=== PATIENT | male | born 1980 | race Caucasian/White ===

== ENCOUNTER 2021-11-26 14:48 | Outpatient (REF) | payer MEDICAID, SELFPAY ==
[2021-11-26 15:32] LABS: MANUAL DIFF FLAG NO
[2021-11-26 15:48] LABS: Basophils Percent Auto 0.2 % (0-2); Eosinophils Absolute Auto 0.1 X10*3/uL (0.0-0.4); Hematocrit 44.7 % (42.0-52.0); Hemoglobin 15.3 g/dl (14.0-18.0); Imm Gran Abs Auto 0.03 X10*3/uL (0.00-0.03); Imm Gran Pct Auto 0.3 % (0.0-0.4); Lymphocytes Percent Auto 33.4 % (20-40); Mean Corpuscular HGB Conc 34.2 g/dl (31.0-36.0); Mean Corpuscular Hemoglobin 29.5 pg (27.0-33.0); Mean Corpuscular Volume 86.1 fL (80.0-98.0); Mean Platelet Volume 8.8 fL (9.4-12.4); Monocytes Absolute Auto 0.8 X10*3/uL (0.1-1.2); Monocytes Percent Auto 8.6 % (2-11); Neutrophils Percent Auto 56.5 % (45-73); Platelet Count 320 X10*3/uL (160-400); Red Blood Count 5.19 X10*6/uL (4.60-5.80); Red Cell Distribution Width 12.6 % (11.0-16.0); White Blood Count 8.9 X10*3/uL (4.8-10.8)
== END 2021-11-26 14:49 | disposition home or self-care (01) ==
LOC: HO.LAB 14:48
PROVIDERS: PCP Internal Medicine; Visit Provider Internal Medicine Pulmonary Disease
DX: Z91.09 Other allergy status, other than to drugs and biological substances (principal)
CPT/HCPCS: 36415; 82785; 85025; 86003; 99202

== ENCOUNTER 2022-01-07 14:05 | Outpatient (REF) | payer MEDICAID, SELFPAY | END 2022-01-07 14:06 | disposition home or self-care (01) | LOC: HO.RESP 14:05 | PROVIDERS: PCP Internal Medicine; Visit Provider Internal Medicine Pulmonary Disease | DX: Z13.89 Encounter for screening for other disorder (principal) ==

== ENCOUNTER 2022-02-05 10:02 | Outpatient (REF) | payer MEDICAID, SELFPAY ==
--- NOTE | 2022-02-05 14:34 | PFT_ITS ---
FLOWS: FEV1 104% of predicted at 3.80 L. FVC 101% of predicted at 4.62 L. FEV1 to FVC ratio of 0.82. Positive bronchodilator response. LUNG VOLUMES: Total lung capacity 89% of predicted at 5.49 L. Residual volume 110% of predicted at 1.82 L. Slow vital capacity 82% of predicted at 3.67 L. Expiratory reserve volume 41% of predicted at 0.56 L. Diffusion capacity is normal. IMPRESSION: No obstructive or restrictive ventilatory defect. Positive bronchodilator response. Decreased expiratory reserve volume suggests extrathoracic restriction likely secondary to abdominal obesity. Cristobal Ku MD AP/MODL / [id number]
== END 2022-02-05 10:03 | disposition home or self-care (01) ==
LOC: HO.RESP 10:02
PROVIDERS: PCP Internal Medicine; Visit Provider Internal Medicine Pulmonary Disease
DX: J45.909 Unspecified asthma, uncomplicated (principal)
CPT/HCPCS: 94060; 94727; 94729

== ENCOUNTER → 2022-02-10 09:54 | Outpatient (BNVA) | payer MEDICAID, SELFPAY | PROVIDERS: PCP Internal Medicine; Visit Provider Internal Medicine Pulmonary Disease | DX: J45.909 Unspecified asthma, uncomplicated (principal); G47.33 Obstructive sleep apnea (adult) (pediatric); Z91.09 Other allergy status, other than to drugs and biological substances | CPT/HCPCS: 99212 ==

== ENCOUNTER → 2022-02-26 13:57 | Outpatient (REF) | payer MEDICAID, SELFPAY | LOC: HO.SL 13:57 | PROVIDERS: PCP Internal Medicine; Visit Provider Internal Medicine Pulmonary Disease | DX: G47.33 Obstructive sleep apnea (adult) (pediatric) (principal); R06.83 Snoring; R40.0 Somnolence | CPT/HCPCS: 95806 ==

== ENCOUNTER → 2022-04-16 10:24 | Outpatient (BNVA) | payer MEDICAID, SELFPAY | PROVIDERS: PCP Internal Medicine; Visit Provider Internal Medicine Pulmonary Disease | DX: J45.909 Unspecified asthma, uncomplicated (principal); G47.33 Obstructive sleep apnea (adult) (pediatric); Z91.09 Other allergy status, other than to drugs and biological substances | CPT/HCPCS: 99212 ==

== ENCOUNTER → 2022-06-09 09:23 | Outpatient (REF) | payer MEDICAID, SELFPAY ==
--- NOTE | 2022-06-09 09:33 | ECG_ITS ---
Test Reason : QTC CHECK Blood Pressure : / mmHG Vent. Rate : 061 BPM Atrial Rate : 061 BPM P-R Int : 152 ms QRS Dur : 080 ms QT Int : 422 ms P-R-T Axes : 035 055 059 degrees QTc Int : 424 ms Normal sinus rhythm Normal ECG No previous ECGs available Referred By: Dilip Carrion Electronically Signed By:GRACIELA MARINELLI MD
== END ==
LOC: HO.CARD 09:23
PROVIDERS: PCP Internal Medicine; Visit Provider Psychiatry & Neurology Child & Adolescent Psychiatry
DX: R94.31 Abnormal electrocardiogram [ECG] [EKG] (principal)
CPT/HCPCS: 93005

== ENCOUNTER → 2022-08-07 14:59 | Outpatient (BNVA) | payer MEDICAID, SELFPAY | PROVIDERS: PCP Internal Medicine; Visit Provider Internal Medicine Pulmonary Disease | DX: J45.909 Unspecified asthma, uncomplicated (principal); G47.33 Obstructive sleep apnea (adult) (pediatric); Z91.09 Other allergy status, other than to drugs and biological substances; Z79.899 Other long term (current) drug therapy | CPT/HCPCS: 99212 ==

== ENCOUNTER 2023-01-22 08:58 | Outpatient (AMB) | payer MEDICAID, SELFPAY ==
[2023-01-22 09:11] VITALS: BP 118/66; PULSE 62; O2SAT 98; BMI 27.3
--- NOTE | 2023-01-22 09:11 | MHC.OFFVIS ---
Intake Vital Signs 01/22/23 09:11 Height 5 ft 6 in Weight 169 lb BMI 27.3 BP 118/66 Blood Pressure Location Lt brachial Position Sitting Pulse 62 Pulse Source Pulse Oximeter Pulse Oximetry (%) 98 Oxygen Delivery Method Room Air Intake Visit Reasons: Obstructive sleep apnea Intake Note: Patient was last seen 08/07/22 where he reported the Dupixent injections were working well and was waiting on his CPAP machine. Pt reports injections are going well and are helping a lot. He has not being using CPAP because of the face mask and wants to try AirTouch F20. Pt denies coughing and wheezing. Allergies No Known Allergies Allergy (Verified 01/22/23 09:17) HPI Obstructive sleep apnea HPI Details 42-year-old gentleman, nonsmoker, now followed for moderate to severe allergic asthma, environmental allergies, and likely obstructive sleep apnea.? He continues on Dupixent with excellent control his symptoms. He does not required to use control inhaler and he did not require any emergency inhalers recently. Patient has been using CPAP with nasal mask, however he would like to switched to fullface mask. Review of Systems Const Denies daytime sleepiness, Denies excessive sweating, Denies fatigue, Denies fever(s), Denies lethargy, Denies malaise, Denies night sweats, Denies snoring and Denies weight loss Eyes Denies blurry vision and Denies itchy eyes ENT Denies nasal congestion, Denies post nasal drip, Denies sinus pain, Denies sinus pressure and Denies other ( Thrush) Card Denies chest pain, Denies pedal edema, Denies dyspnea, Denies orthopnea and Denies paroxysmal nocturnal dyspnea Resp Denies cough, Denies hemoptysis, Denies excessive phlegm production, Denies dyspnea, Denies snoring and Denies wheezing GI Denies abdominal pain and Denies heartburn Musc Denies myalgias, Denies arthralgias and Denies joint swelling Skin/Breast Denies rash Neuro Denies memory loss and Denies seizure-like activity Psych Denies abnormal sleep pattern, Denies anxiety and Denies memory loss Endo Denies excessive sweating, Denies fatigue and Denies heat intolerance Loyd/Lymph Denies easy bruising Aller/Immun Denies itchy eyes, Denies seasonal rhinorrhea and Denies wheezing Physical Exam Vital Signs: Last Vital Signs Pulse 62 01/22/23 09:11 BP 118/66 01/22/23 09:11 Pulse Ox 98 01/22/23 09:11 Oxygen Delivery Method Room Air 01/22/23 09:11 BMI result Body Mass Index 27.3 Const General: no acute distress and alert Nutritional Appearance: not obese Orientation/consciousness: Other orientation findings ( oriented) HEENT Head: Yes atraumatic Eyes General: appearance normal, both eyes and all related structures Sclerae: sclerae normal EOM: EOMs intact bilaterally Neck Neck: Yes supple Lymphatic: no lymphadenopathy noted Resp Effort & Inspection: normal respiratory effort and no use of accessory muscles Auscultation: clear to auscultation bilaterally Cardio Rate: regular rate Rhythm: regular rhythm Heart sounds: no gallops, no murmurs and no rubs Skin General skin exam: other ( warm) Extrem General: No clubbing, No cyanosis and No edema Assessment & Plan Assessment & Plan (1) Asthma: Code(s): J45.909 - Unspecified asthma, uncomplicated Plan: Excellent control on Dupixent. Continue on Dupixent and albuterol MDI. (2) Environmental allergies: Code(s): Z91.09 - Other allergy status, other than to drugs and biological substances Plan: Excellent control on Dupixent. Continue current regimen. (3) STEVIE (obstructive sleep apnea): Code(s): G47.33 - Obstructive sleep apnea (adult) (pediatric) Plan: Suboptimal control as patient does not tolerate nasal mask and would like to try fullface mask instead. Fullface mask provided. Coding Level of Care Code Est Pt Level 4 (57433) Diagnoses Asthma J45.909 Environmental allergies Z91.09 STEVIE (obstructive sleep apnea) G47.33
== END 2023-01-22 09:38 | disposition home or self-care (01) ==
PROVIDERS: PCP Internal Medicine; Visit Provider Internal Medicine Pulmonary Disease
DX: J45.909 Unspecified asthma, uncomplicated (principal); Z91.09 Other allergy status, other than to drugs and biological substances; G47.33 Obstructive sleep apnea (adult) (pediatric)
CPT/HCPCS: 99214

== ENCOUNTER → 2023-01-22 08:58 | Outpatient (BNVA) | payer MEDICAID, SELFPAY | PROVIDERS: PCP Internal Medicine; Visit Provider Internal Medicine Pulmonary Disease | DX: G47.33 Obstructive sleep apnea (adult) (pediatric) (principal); J45.909 Unspecified asthma, uncomplicated; Z91.09 Other allergy status, other than to drugs and biological substances | CPT/HCPCS: 99212 ==

== ENCOUNTER 2023-07-22 09:37 | Outpatient (AMB) | payer MEDICAID, SELFPAY ==
--- NOTE | 2023-07-22 09:40 | A.OFFVIS_ITS ---
Intake Vital Signs 07/22/23 09:41 Height 5 ft 11 in Weight 169 lb 12.095 oz BMI 23.7 BP 102/67 Blood Pressure Location Rt brachial Position Sitting Pulse 76 Pulse Source Doppler Pulse Oximetry (%) 99 Oxygen Delivery Method Room Air Intake Visit Reasons: Obstructive sleep apnea Ab Initio Etl Developer Required: Yes Ab Initio Etl Developer Name: Jael Tee Cecilia Allergies seafood Allergy (Severe, Uncoded 07/22/23 09:46) Unknown HPI Obstructive sleep apnea HPI Details 43-year-old gentleman, nonsmoker, now fo llowed for moderate to severe allergic asthma, environmental allergies, and obstructive sleep apnea.? He continues on Dupixent with excellent control his symptoms. He does not required to use control inhaler and he did not require any emergency inhalers recently. Patient has tried to use CPAP, however he was not able to adjust to sleeping with a mask and cannot tolerate it. Review of Systems Const Denies daytime sleepiness, Denies excessive sweating, Denies fatigue, Denies fever(s), Denies lethargy, Denies malaise, Denies night sweats, Denies snoring and Denies weight loss Eyes Denies blurry vision and Denies itchy eyes ENT Denies nasal congestion, Denies post nasal drip, Denies sinus pain, Denies sinus pressure and Denies other ( Thrush) Card Denies chest pain, Denies pedal edema, Denies dyspnea, Denies orthopnea and Denies paroxysmal nocturnal dyspnea Resp Denies cough, Denies hemoptysis, Denies excessive phlegm production, Denies dyspnea, Denies snoring and Denies wheezing GI Denies abdominal pain and Denies heartburn Musc Denies myalgias, Denies arthralgias and Denies joint swelling Skin/Breast Denies rash Neuro Denies memory loss and Denies seizure-like activity Psych Denies abnormal sleep pattern, Denies anxiety and Denies memory loss Endo Denies excessive sweating, Denies fatigue and Denies heat intolerance Loyd/Lymph Denies easy bruising Aller/Immun Denies itchy eyes, Denies seasonal rhinorrhea and Denies wheezing Physical Exam Vital Signs: Last Vital Signs Pulse 76 07/22/23 09:41 BP 102/67 07/22/23 09:41 Pulse Ox 99 07/22/23 09:41 Oxygen Delivery Method Room Air 07/22/23 09:41 BMI result Body Mass Index 23.7 Const General: no acute distress and alert Nutritional Appearance: not obese Orientation/consciousness: Other orientation findings ( oriented) HEENT Head: Yes atraumatic Eyes General: appearance normal, both eyes and all related structures Sclerae: sclerae normal EOM: EOMs intact bilaterally Neck Neck: Yes supple Lymphatic: no lymphadenopathy noted Resp Effort & Inspection: normal respiratory effort and no use of accessory muscles Auscultation: clear to auscultation bilaterally Cardio Rate: regular rate Rhythm: regular rhythm Heart sounds: no gallops, no murmurs and no rubs Skin General skin exam: other ( warm) Extrem General: No clubbing, No cyanosis and No edema Assessment & Plan Assessment & Plan (1) Asthma: Code(s): J45.909 - Unspecified asthma, uncomplicated Plan: Well controlled on Dupixent and albuterol MDI. Continue current regimen. (2) STEVIE (obstructive sleep apnea): Code(s): G47.33 - Obstructive sleep apnea (adult) (pediatric) Plan: Unable to tolerate CPAP. Patient has been advised to discuss jaw advancement device with his dentist. (3) Environmental allergies: Code(s): Z91.09 - Other allergy status, other than to drugs and biological substances Plan: Well controlled on Dupixent. Continue current regimen. Coding Level of Care Code Est Pt Level 4 (22343) Diagnoses Asthma J45.909 STEVIE (obstructive sleep apnea) G47.33 Environmental allergies Z91.09
[2023-07-22 09:41] VITALS: BP 102/67; PULSE 76; O2SAT 99; BMI 23.7
== END 2023-07-22 09:56 | disposition home or self-care (01) ==
PROVIDERS: PCP Internal Medicine; Visit Provider Internal Medicine Pulmonary Disease
DX: J45.909 Unspecified asthma, uncomplicated (principal); G47.33 Obstructive sleep apnea (adult) (pediatric); Z91.09 Other allergy status, other than to drugs and biological substances
CPT/HCPCS: 99214

== ENCOUNTER → 2023-07-22 09:37 | Outpatient (BNVA) | payer MEDICAID, SELFPAY | PROVIDERS: PCP Internal Medicine; Visit Provider Internal Medicine Pulmonary Disease | DX: G47.33 Obstructive sleep apnea (adult) (pediatric) (principal); J45.909 Unspecified asthma, uncomplicated; Z91.09 Other allergy status, other than to drugs and biological substances | CPT/HCPCS: 99212 ==

== ENCOUNTER 2024-01-06 15:04 | Outpatient (AMB) | payer MEDICAID, SELFPAY ==
--- NOTE | 2024-01-06 15:05 | MHC.OFFVIS ---
Vital Signs 01/06/24 15:06 Height 5 ft 10 in Weight 156 lb BMI 22.4 BP 106/62 Blood Pressure Location Rt brachial Position Sitting Pulse 75 Pulse Source Doppler Pulse Oximetry (%) 98 Oxygen Delivery Method Room Air Intake Visit Reasons: Obstructive sleep apnea Manager Bilingual Required: Yes Manager Bilingual Name: Jael Jaime Cecilia Allergies seafood Allergy (Severe, Uncoded 07/22/23 09:46) Unknown HPI HPI Obstructive sleep apnea: Details: 43-year-old gentleman, nonsmoker, now followed for moderate to severe allergic asthma, environmental allergies, and obstructive sleep apnea.? He continues on Dupixent with excellent control his symptoms. He does not required to use control inhaler and he did not require any emergency inhalers recently. Patient has tried to use CPAP, however he was not able to adjust to sleeping with a mask and cannot tolerate it. He denies recent exacerbations. Review of Systems Const Denies daytime sleepiness, Denies excessive sweating, Denies fatigue, Denies fever(s), Denies lethargy, Denies malaise, Denies night sweats, Denies snoring and Denies weight loss Eyes Denies blurry vision and Denies itchy eyes ENT Denies nasal congestion, Denies post nasal drip, Denies sinus pain, Denies sinus pressure and Denies other ( Thrush) Card Denies chest pain, Denies pedal edema, Denies dyspnea, Denies orthopnea and Denies paroxysmal nocturnal dyspnea Resp Denies cough, Denies hemoptysis, Denies excessive phlegm production, Denies dyspnea, Denies snoring and Denies wheezing GI Denies abdominal pain and Denies heartburn Musc Denies myalgias, Denies arthralgias and Denies joint swelling Skin/Breast Denies rash Neuro Denies memory loss and Denies seizure-like activity Psych Denies abnormal sleep pattern, Denies anxiety and Denies memory loss Endo Denies excessive sweating, Denies fatigue and Denies heat intolerance Loyd/Lymph Denies easy bruising Aller/Immun Denies itchy eyes, Denies seasonal rhinorrhea and Denies wheezing Physical Exam Vital Signs: Last Vital Signs Pulse 75 01/06/24 15:06 BP 106/62 01/06/24 15:06 Pulse Ox 98 01/06/24 15:06 Oxygen Delivery Method Room Air 01/06/24 15:06 BMI result Body Mass Index 22.4 Const General: no acute distress and alert Nutritional Appearance: not obese Orientation/consciousness: Other orientation findings ( oriented) HEENT Head: Yes atraumatic Eyes General: appearance normal, both eyes and all related structures Sclerae: sclerae normal EOM: EOMs intact bilaterally Neck Neck: Yes supple Lymphatic: no lymphadenopathy noted Resp Effort & Inspection: normal respiratory effort and no use of accessory muscles Auscultation: clear to auscultation bilaterally Cardio Rate: regular rate Rhythm: regular rhythm Heart sounds: no gallops, no murmurs and no rubs Skin General skin exam: other ( warm) Extrem General: No clubbing, No cyanosis and No edema Assessment & Plan Assessment & Plan (1) Asthma: Code(s): J45.909 - Unspecified asthma, uncomplicated Category: Medical Plan: Well controlled on current regimen of Dupixent and albuterol MDI. Continue current regimen. (2) Environmental allergies: Code(s): Z91.09 - Other allergy status, other than to drugs and biological substances Category: Medical Plan: Well controlled on Dupixent. Continue current regimen. Coding Level of Care Code Est Pt Level 4 (17716) Diagnoses Asthma J45.909 Environmental allergies Z91.09
[2024-01-06 15:06] VITALS: BP 106/62; PULSE 75; O2SAT 98; BMI 22.4
== END 2024-01-06 15:18 | disposition home or self-care (01) ==
PROVIDERS: PCP Internal Medicine; Visit Provider Internal Medicine Pulmonary Disease
DX: J45.909 Unspecified asthma, uncomplicated (principal); Z91.09 Other allergy status, other than to drugs and biological substances
CPT/HCPCS: 99214

== ENCOUNTER → 2024-01-06 15:04 | Outpatient (BNVA) | payer MEDICAID, SELFPAY | PROVIDERS: PCP Internal Medicine; Visit Provider Internal Medicine Pulmonary Disease | DX: J45.909 Unspecified asthma, uncomplicated (principal); Z91.09 Other allergy status, other than to drugs and biological substances | CPT/HCPCS: 99212 ==

== ENCOUNTER 2024-05-03 12:46 | Outpatient (REF) | payer MEDICAID, SELFPAY ==
--- NOTE | ~2024-05-03 | XR_ITS ---
EXAMINATION: XR LUMBOSACRAL SPINE CLINICAL INFORMATION: Fell 2 weeks ago with bilateral back pain and no sciatica COMPARISON: None available. TECHNIQUE: Three views of the lumbosacral spine. FINDINGS: Some minor degenerative changes are seen with some superior central endplate osteophytes at L3 and L4. There is mild narrowing at the L4-L5 disc space and to a lesser extent at L3-L4. The vertebral bodies and posterior elements are otherwise normal. The remainder of the disc spaces are preserved and the vertebral alignment is normal. The paraspinal soft tissues are normal. XR/XR lumbar spine 2-3V IMPRESSION: Mild degenerative changes in the lumbar spine as described above. No evidence of an acute traumatic injury. Electronically signed by: Abilio Voss MD 05/04/2024 09:03 AM EDT
== END 2024-05-03 12:47 | disposition home or self-care (01) ==
LOC: HO.HHCX 12:46
PROVIDERS: Visit Provider Internal Medicine
DX: M54.50 Low back pain, unspecified (principal)
CPT/HCPCS: 72100

== ENCOUNTER 2024-06-30 10:12 | Outpatient (AMB) | payer MEDICARE, MEDICAID, SELFPAY ==
[2024-06-30 10:20] VITALS: BP 122/70; PULSE 78; O2SAT 99
--- NOTE | 2024-06-30 10:20 | MHC.OFFVIS ---
Vital Signs 06/30/24 10:20 Weight 165 lb BP 122/70 Blood Pressure Location Rt brachial Position Sitting Pulse 78 Pulse Source Doppler Pulse Oximetry (%) 99 Oxygen Delivery Method Room Air Intake Visit Reasons: Obstructive sleep apnea Stamp Classifier Required: Yes Stamp Classifier Name: Jael Tee Cecilia Allergies seafood Allergy (Severe, Uncoded 07/22/23 09:46) Unknown HPI HPI Obstructive sleep apnea: Details: 44-year-old gentleman, nonsmoker, now followed for moderate to severe allergic asthma, environmental allergies, and obstructive sleep apnea.? He continues on Dupixent with excellent control his symptoms. He rarely needs to use albuterol MDI or nebs. He denies recent exacerbations. Review of Systems Const Denies daytime sleepiness, Denies excessive sweating, Denies fatigue, Denies fever(s), Denies lethargy, Denies malaise, Denies night sweats, Denies snoring and Denies weight loss Eyes Denies blurry vision and Denies itchy eyes ENT Denies nasal congestion, Denies post nasal drip, Denies sinus pain, Denies sinus pressure and Denies other ( Thrush) Card Denies chest pain, Denies pedal edema, Denies dyspnea, Denies orthopnea and Denies paroxysmal nocturnal dyspnea Resp Denies cough, Denies hemoptysis, Denies excessive phlegm production, Denies dyspnea, Denies snoring and Denies wheezing GI Denies abdominal pain and Denies heartburn Musc Denies myalgias, Denies arthralgias and Denies joint swelling Skin/Breast Denies rash Neuro Denies memory loss and Denies seizure-like activity Psych Denies abnormal sleep pattern, Denies anxiety and Denies memory loss Endo Denies excessive sweating, Denies fatigue and Denies heat intolerance Loyd/Lymph Denies easy bruising Aller/Immun Denies itchy eyes, Denies seasonal rhinorrhea and Denies wheezing Physical Exam Vital Signs: Last Vital Signs Pulse 78 06/30/24 10:20 BP 122/70 06/30/24 10:20 Pulse Ox 99 06/30/24 10:20 Oxygen Delivery Method Room Air 06/30/24 10:20 Const General: no acute distress and alert Nutritional Appearance: not obese Orientation/consciousness: Other orientation findings ( oriented) HEENT Head: Yes atraumatic Eyes General: appearance normal, both eyes and all related structures Sclerae: sclerae normal EOM: EOMs intact bilaterally Neck Neck: Yes supple Lymphatic: no lymphadenopathy noted Resp Effort & Inspection: normal respiratory effort and no use of accessory muscles Auscultation: clear to auscultation bilaterally Cardio Rate: regular rate Rhythm: regular rhythm Heart sounds: no gallops, no murmurs and no rubs Skin General skin exam: other ( warm) Extrem General: No clubbing, No cyanosis and No edema Assessment & Plan Assessment & Plan (1) Asthma: Code(s): J45.909 - Unspecified asthma, uncomplicated Category: Medical Plan: Well controlled on Dupixent and albuterol MDI. Continue current regimen. (2) Environmental allergies: Code(s): Z91.09 - Other allergy status, other than to drugs and biological substances Category: Medical Plan: Well controlled on Dupixent. Continue current regimen. Coding Level of Care Code Est Pt Level 4 (91068) Diagnoses Asthma J45.909 Environmental allergies Z91.09
== END 2024-06-30 10:31 | disposition home or self-care (01) ==
PROVIDERS: PCP Internal Medicine; Visit Provider Internal Medicine Pulmonary Disease
DX: J45.909 Unspecified asthma, uncomplicated (principal); Z91.09 Other allergy status, other than to drugs and biological substances
CPT/HCPCS: 99214

== ENCOUNTER → 2024-06-30 10:12 | Outpatient (BNVA) | payer MEDICARE, MEDICAID, SELFPAY | PROVIDERS: PCP Internal Medicine; Visit Provider Internal Medicine Pulmonary Disease | DX: G47.33 Obstructive sleep apnea (adult) (pediatric) (principal); J45.909 Unspecified asthma, uncomplicated; Z91.09 Other allergy status, other than to drugs and biological substances | CPT/HCPCS: 99212 ==

== ENCOUNTER 2025-01-21 23:42 | Emergency (ER) | payer MEDICARE, MEDICAID, SELFPAY ==
[2025-01-22] VITALS: BP 130/91; PULSE 60; RESP 16; TEMP 36.8; O2SAT 99; BMI 23.1
--- OUTSIDE RECORDS SUMMARY | 2025-01-22 01:01 | XMS_ITS | Encounter Summary ---
Author Organization [employer] Address [address] [facility] [place] [address] Care Team Providers Care Aerial Lineman Name Role Phone Azul Seals MD Primary Care Provide r Encounter Details Date Type Department Care Team (Latest Contact Info) Description 05/08/2019 Abstract [facility] CONVERSIONS Dental, Provider, DDS Social History Tobacco Use Types Packs/Day Years Used Date Smoking Tobacco: Never Assessed Sex and Gender Information Value Date Recorded Sex Assigned at Male 05/11/2022 10:35 AM EDT Legal Sex Male 10:35 AM EDT Gender Identity Male 05/11/2022 10:35 AM EDT Sexual Orientation Straight 05/11/2022 10 :35 AM EDT documented as of this encounter Plan of Treatment Not on file documented as of this encounter Visit Diagnoses Not on filedocumented in this encounter Care Teams Aerial Lineman Relationship Specialty Start Date End Date Azul Seals MD [address] [place] [id number] PCP - General Family Medicine 04/12/19 documented as of this encounter
--- NOTE | 2025-01-22 02:49 | ED.GENADULT ---
HPI - General Adult General Chief complaint: Eye Problems Stated complaint: irritated right eye Time Seen by Provider: 01/22/25 00:47 Source: patient Limitations: language barrier History of Present Illness ED Provider: Char Zendejas PA-C HPI narrative: 44-year-old male presents with right eye pain. Patient states he was feeding his horses, he feels like there is hay in his eye. Patient states it he is having pain when he attempts to open the eye. Denies use of contact lenses, the patient is not diabetic. Related Data Home Medications ?Medication ?Instructions ?Recorded ?Confirmed albuterol sulfate 2.5 mg/3 mL mg inhalation TID 11/26/21 04/16/22 (0.083 %) solution for nebulization amlodipine 2.5 mg tablet 2.5 mg PO DAILY 11/26/21 04/16/22 blood pressure test kit-large #1 ea 11/26/21 gabapentin 600 mg tablet 600 mg PO TID 11/26/21 04/16/22 omeprazole 40 mg capsule,delayed 40 mg PO DAILY 11/26/21 04/16/22 release Previous Rx's ?Medication ?Instructions ?Recorded albuterol sulfate 90 mcg/actuation 2 puff inhalation Q4-6H PRN for 05/24/23 aerosol inhaler (Ventolin HFA) wheezing #18 grams dupilumab 300 mg/2 mL subcutaneous 300 mg (2 mL) subcut Q2W #4 mL 04/14/24 syringe (Dupixent) erythromycin 5 mg/gram (0.5 %) eye 0.5 inch ophthalmic (eye) QID #3.5 01/22/25 ointment grams ketorolac 0.5 % eye drops 1 drp ophthalmic (eye) QID PRN 01/22/25 pain #5 mL Allergies Allergy/AdvReac Type Severity Reaction Status Date / Time seafood Allergy Severe Unknown Uncoded 01/22/25 00:04 Review of Systems Review of Systems: Yes all other systems are reviewed and are negative Constitutional: Constitutional: Denies fatigue and Denies fever(s) Eyes: Eyes: Denies change in vision, Reports irritation and Reports eye pain Endocrine: Endocrine: Denies fatigue PMFSH Past Medical History Attestation statement: The following information was validated with the patient. Social History Social History Advance Directives: No Advance Directives Information Provided: No Do you have a plan to hurt others: No Plan Physical Exam ED Vital Signs: Vital Signs - 24 hr 01/22/ 00:00 Temperature 98.2 F Pulse Rate 60 Respiratory Rate 16 Blood Pressure 130/91 H Pulse Oximetry 99 BMI result Body Mass Index 23.1 Const Other: Alert Orientation/consciousness: patient oriented x3 Eyes Other: No foreign body noted with inversion of the lid, pinpoint corneal abrasion noted at approximately 9:00 o'clock with fluorescein stain, palpebral and bulbar conjunctiva is injected Resp Effort & Inspection: normal respiratory effort Cardio Other: Normal peripheral perfusion Skin Other: Warm dry no rash Neuro General: patient oriented x3, gait normal, no focal motor deficits and CN's II-XI intact bilaterally Psych Other: Cooperative Medical Decision Making Medical Decision Making MDM Narrative: 44-year-old male presents with right eye pain. Patient states he was feeding his horses, he feels like there is hay in his eye. Patient states it he is having pain when he attempts to open the eye. Denies use of contact lenses, the patient is not diabetic. No chronic issues History: Per patient I have considered the following differential diagnoses: Corneal foreign body, conjunctivitis, corneal abrasion, corneal ulceration Plan: The patient has allergic conjunctivitis with a corneal abrasion, we will treat accordingly. He has no risk factors for Pseudomonas. Discharge Plan Discharge Clinical Impression: Abrasion of right cornea, Acute allergic conjunctivitis of right eye Patient Disposition: Home, Self-Care Instructions: Corneal Abrasion (ED), Conjunctivitis (ED) Additional Instructions: You were found to have a corneal abrasion and conjunctivitis secondary to the exposure to hay. See home care instructions. Use the erythromycin ointment as directed. Use the ketorolac drops as needed for pain. Follow up with the risk management specialist, call tomorrow to make an appointment. Prescriptions: New erythromycin 5 mg/gram (0.5 %) ointment 0.5 inch ophthalmic (eye) QID Qty: 3.5 0RF ketorolac 0.5 % drops 1 drp ophthalmic (eye) QID PRN (Reason: pain) Qty: 5 0RF No Action albuterol sulfate [Ventolin HFA] 90 mcg/actuation HFA aerosol inhaler 2 puff inhalation Q4-6H PRN (Reason: for wheezing) Qty: 18 6RF Dupixent Syringe 300 mg/2 mL syringe 300 mg subcut Q2W Qty: 4 0RF omeprazole 40 mg capsule,delayed release(DR/EC) 40 mg PO DAILY amlodipine 2.5 mg tablet 2.5 mg PO DAILY (DME) blood pressure test kit-large Kit See Rx Instructions .ROUTE DAILY Qty: 1 Rx Instructions: As directed gabapentin 600 mg tablet 600 mg PO TID albuterol sulfate 2.5 mg /3 mL (0.083 %) solution for nebulization inhalation TID Referrals: Shaggy Kumar [Physician, Ophthalmology] Referral Note: Right corneal abrasion Print Language: Romanian
[2025-01-22 02:59] VITALS: BP 140/94; PULSE 64; RESP 16; TEMP 36.5; O2SAT 100
== END 2025-01-22 03:07 | disposition home or self-care (01) ==
PROVIDERS: Emergency Provider Emergency Medicine
DX: H57.89 Other specified disorders of eye and adnexa (principal); H10.11 Acute atopic conjunctivitis, right eye; S05.01XA Injury of conjunctiva and corneal abrasion without foreign body, right eye, initial encounter; X58.XXXA Exposure to other specified factors, initial encounter; Y93.9 Activity, unspecified; Y92.9 Unspecified place or not applicable; Y99.9 Unspecified external cause status
CPT/HCPCS: 99282; 99283

== ENCOUNTER 2025-03-28 17:11 | Emergency (ER) | payer MEDICARE, MEDICAID, SELFPAY ==
--- NOTE | ~2025-03-28 | XR_ITS ---
CLINICAL HISTORY: left thumb injury Radiographs of the left hand, 3 views Comparison: None available Findings: No fracture or dislocation. No degenerative change. Soft tissue swelling. Impression: No fracture. This document has been electronically signed by: Nila Steward MD on 03/28/2025 17:46:28
[2025-03-28 17:15] VITALS: BP 164/81; PULSE 65; RESP 16; TEMP 36.4; O2SAT 96; BMI 29.5
--- NOTE | 2025-03-28 17:16 | ED_ITS ---
HPI - General Adult General Chief complaint: General Medical Stated complaint: Left thrumb injury Time Seen by Provider: 03/28/25 17:50 Source: patient Mode of arrival: ambulatory Limitations: no limitations History of Present Illness ED Provider: Dawson Benson [facility] narrative: 44 yold male presents to the ED for left thumb injury with a hammer. Patient fixing his door and he accidently hit his thumb with the hammer. Patient states no other complaints. Related Data Home Medications ?Medication ?Instructions ?Recorded ?Confirmed albuterol sulfate 2.5 mg/3 mL mg inhalation TID 04/16/22 (0.083 %) solution for nebulization amlodipine 2.5 mg tablet 2.5 mg PO DAILY 11/26/2112/31 blood pressure test kit-large #1 ea 11/26/21 gabapentin 600 mg tablet 600 mg PO TID 11/26/2104/16 omeprazole 40 mg capsule,delayed 40 mg PO DAILY 04/16/22 release Previous Rx's ?Medication ?Instructions ?Recorded albuterol sulfate 90 mcg/actuation 2 puff inhalation Q 4-6H PRN for 05/24/23 aerosol inhaler (Ventolin HFA) wheezing #18 grams dupilumab 300 mg/2 mL subcutaneous 300 mg (2 mL) subcu t Q2W #4 mL 04/14/24 syringe ([employer]) erythromycin 5 mg/gram (0.5 %) eye 0.5 inch ophthalmic (eye) QID #3.5 01/22/25 ointment grams ketorolac 0.5 % eye drops 1 drp ophthalmic (eye) QID P RN 01/22/25 pain #5 mL naproxen 500 mg tablet 500 mg PO BID PRN pain #14 t abs 03/28/25 Allergies Allergy/AdvReac Type Severity Reaction Status Date / Time seafood Allergy Severe Unknown Uncoded 03/28/25 17:16 Review of Systems 2 Review of Systems: left thumb injury Yes all other systems are reviewed and are negative PMFSH Social History Social History Advance Directives: No Advance Directives Information Provided: No Physical Exam ED Vital Signs: Vital Signs - 24 hr 03/28/25 17:15 03/28/25 17:43 03/28/25 17:49 Temperature 97.6 F 98.8 F 98.8 F Pulse Rate 65 51 51 Respiratory Rate 16 12 12 Blood Pressure 164/81 H 154/89 H 154/89 H Pulse Oximetry 96 99 99 Oxygen Delivery Method Room Air Room Air Room Air 03/28/25 18:54 Temperature 98.8 F Pulse Rate 51 Respiratory Rate 12 Blood Pressure 154/89 H Pulse Oximetry 99 Oxygen Delivery Method Room Air BMI result Body Mass Index 29.5 Const General: cooperative, healthy appearing, comfortable, no acute distress, well developed, alert, awake and Physically active Orientation/consciousness: patient oriented x3 HENMA Head: Yes normal to inspection, Yes No palpable skull fracture present, Yes normocephalic and Yes atraumatic Eyes General: appearance normal, both eyes and all related structures Neck Neck: Yes normal visual inspection, Yes full ROM, Yes no lymphadenopathy, Yes no meningeal signs, Yes trachea midline, Yes supple, No anterior neck swelling and No tender Chest Chest palpation & inspection: normal inspection of the chest and normal palpation of entire chest wall Resp Effort & Inspection: normal respiratory effort and able to speak in complete sentences Auscultation: clear to auscultation bilaterally Cardio Jugular venous distension: no JVD Heart sounds: S1 normal heart sound present and S2 normal heart sound present GI Inspection: Yes normal to inspection Palpation (GI): Soft to palpation, not firm, nontender, no guarding and not rigid General: Yes no CVA tenderness Back/Spine/Pelvis Back: no CVA tenderness and No back tenderness Skin General skin exam: no rashes or lesions noted, elasticity normal and turgor normal Neuro General: patient oriented x3, gait normal, tone normal, moves all extremities, No Normal light touch and pain sensation, no meningeal signs, no focal motor deficits, CN's II-XI intact bilaterally and normal sensation to monofilament Extrem General: Yes normal to inspection, Yes full ROM and Yes capillary refill normal Hand/finger images: 2 1. positive for tenderness on palpation and mild ecchymosis. negative for erythema, or defomrity. negative for signs of nerve/tendon injury.Rest of extremity is normal. motor, neuro, and vascular exam is intact. Psych Appearance: grossly normal, well kempt and not disheveled Course Course Course Narrative: RME: 44-year-old male presents to ED for left thumb injury. Patient while working in his house hit his thumb accident with a hammer. Positive for tenderness on palpation. X-ray ordered Medications Administered Discontinued Medications Generic Name Dose Route Start Last Admin Trade Name Freq PRN Reason Stop Dose Admin Ketorolac Tromethamine 30 mg 03/28/25 17:53 03/28/25 18:06 Ketorolac Tromethamine 30 Mg/Ml Vial IM 03/28/25 17:54 30 mg ONCE ONE Administration Medical Decision Making Medical Decision Making [facility] Narrative: RME: 44-year-old male presents to ED for thumb injury. Patient is hitting himself vaccine with a hammer. Patient states no other complaints. X-ray negative for fracture. Patient discharged with pain medication. Patient is placed in thumb spica velcro splint. Patient not in disterss. Toradol orderd Discharge Plan Discharge Clinical Impression: Contusion, Left thumb sprain Patient Disposition: Home, Self-Care Instructions: Contusion in Adults (ED), Finger Sprain (ED), Bone Bruise (ED) Additional Instructions: X-rays came back normal. Recommend follow-up with primary care provider. Recommend ice the 1st 48 hours and then warm compresses after for improvement. Return to the ED immediately for any swelling, redness, bluish black discoloration, stiffness, fever, chills, or any other concerning symptoms. Ordering Physician: Dawson Benson Date of Service: 03/28/25 Procedure(s): XR hand LT min 3V Accession Number(s): [id number] cc: Dawson Benson; Physician,Unknown ~ Reason for Exam: left thumb injury CLINICAL HISTORY: left thumb injury Radiographs of the left hand, 3 views Comparison: None available Findings: No fracture or dislocation. No degenerative change. Soft tissue swelling. Impression: No fracture. This document has been electronically signed by: Nila Steward MD on 03/28/2025 17:46:28 Prescriptions: New naproxen 500 mg tablet 500 mg PO BID PRN (Reason: pain) Qty: 14 0RF No Action albuterol sulfate [Ventolin HFA] 90 mcg/actuation HFA aerosol inhaler 2 puff inhalation Q4-6H PRN (Reason: for wheezing) Qty: 18 6RF Dupixent Syringe 300 mg/2 mL syringe 300 mg subcut Q2W Qty: 4 0RF erythromycin 5 mg/gram (0.5 %) ointment 0.5 inch ophthalmic (eye) QID Qty: 3.5 0RF ketorolac 0.5 % drops 1 drp ophthalmic (eye) QID PRN (Reason: pain) Qty: 5 0RF omeprazole 40 mg capsule,delayed release(DR/EC) 40 mg PO DAILY amlodipine 2.5 mg tablet 2.5 mg PO DAILY (DME) blood pressure test kit-large Kit See Rx Instructions .ROUTE DAILY Qty: 1 Rx Instructions: As directed gabapentin 600 mg tablet 600 mg PO TID albuterol sulfate 2.5 mg /3 mL (0.083 %) solution for nebulization inhalation TID Stand Alone Forms: Work/School Release Interventions: ED Discharge Assessment Last Done: 03/28/25 18:54 Discharge Date/Time: 03/28/25 18:54 Print Language: Kinyarwanda
[2025-03-28 17:43] VITALS: BP 154/89; PULSE 51; RESP 12; TEMP 37.1; O2SAT 99
[2025-03-28 17:49] VITALS: BP 154/89; PULSE 51; RESP 12; TEMP 37.1; O2SAT 99
[2025-03-28 18:54] VITALS: BP 154/89; PULSE 51; RESP 12; TEMP 37.1; O2SAT 99
--- OUTSIDE RECORDS SUMMARY | 2025-03-28 19:28 | XMS_ITS | Encounter Summary ---
Author Organization [employer] Address [address] [place] [address] Care Team Providers Care American History Teacher Name Role Phone Azul Seals MD Primary Care Provide r Reason for Visit * Reason Comments Med Refill Encounter Details Date Type Department Care Team ([facility] st Contact Info) Description 03/27/2025 Refill [facility] MEDICINE [address], [place] [phone] Azul Seals MD [address] [place] [address] Acute bilateral low back pain without sciatica; Post-traumatic osteoarthritis of left ankle Social History Tobacco Use Types Packs/Day Years Used Date Smoking Tobacco: Never Passive Smoke Exposure: Never Smokeless Tobacco: Never Alcohol Use Standard Drinks/Week Comments Never 0 (1 standard drink = 0.6 oz pur e alcohol) Depression Answer Date Recorded Patient Health Questionnaire-9 Score 0 08/04/2023 Patient Health Questionnaire-9 Score 0 08/04/2023 Last PHQ-9: Questionnaire Data Not on file 0 08/04/2023 Housing Stability Answer Date Recorded What is your housing situation today? I have chun [place] 05/14/[address] you li ve. Do you have problems with any of the following? None of the above 05/14/2023 Food Insecurity Answer Date Recorded Within the past 12 months, y ou worried that your food would run out before you got money to buy more: Never True 05/14/2023 Within the past 12 months,th e food you bought just didn't last and you didn't have enough money to get more: Never True 09/2022 Transportation Answer Date Recorded In the past 12 months, has l ack of transportation kept you from medical appts, meetings, work or from getting things needed for daily living? No 05/14/2023 Utilities Answer Date Recorded In the past 12 months, has t he electric, gas, oil or water company threatened to shut off services in your home? No 05/14/2023 Depression Answer Date Recorded Patient Health Questionnaire-2 Score 0 08/04/2023 Sex and Gender Information Value Date Recorded Sex Assigned at Male 05/11/2022 10:35 AM EDT Legal Sex Male 10:35 AM EDT Gender Identity Male 05/11/2022 10:35 AM EDT Sexual Orientation Straight 05/11/2022 10 :35 AM EDT documented as of this encounter Plan of Treatment Not on file documented as of this encounter Visit Diagnoses Diagnosis Acute bilateral low back pain without sciatica Post-traumatic osteoarthritis of left ankle documented in this encounter Additional Health Concerns Assessment Noted Time PHQ-9 Depression Total Score: 0 08/04/19 24 11:29 AM EST documented as of this encounter Care Teams American History Teacher Relationship Specialty Start Date End Date Azul Seals MD [address] [place] [address] PCP - General Family Medicine 04/12/19 documented as of this encounter
--- OUTSIDE RECORDS SUMMARY | 2025-03-28 19:28 | XMS_ITS | Encounter Summary ---
Author Organization [employer] Address [address] [place] [address] Care Team Providers Care Body Coverer Name Role Phone Azul Seals MD Primary Care Provide r Encounter Details Date Type Department Care Team (Late st Contact Info) Description 04/07/2023 Orders Only [facility] PEDS [address] [place] [address] Alexia Palmer LPN Social History Tobacco Use Types Packs/Day Years Used Date Smoking Tobacco: Never Passive Smoke Exposure: Never Smokeless Tobacco: Never Depression Answer Date Recorded Patient Health Questionnaire-9 Score 11 12/14/2022 Depression Answer Date Recorded Patient Health Questionnaire-2 Score 3 12/14/2022 Sex and Gender Information Value Date Recorded Sex Assigned at Male 05/11/2022 10:35 AM EDT Legal Sex Male 10:35 AM EDT Gender Identity Male 05/11/2022 10:35 AM EDT Sexual Orientation Straight 05/11/2022 10 :35 AM EDT documented as of this encounter Plan of Treatment Not on file documented as of this encounter Visit Diagnoses Not on filedocumented in this encounter Additional Health Concerns Assessment Noted Time PHQ-9 Depression Total Score: 11 023 3:42 PM EDT documented as of this encounter Care Teams Body Coverer Relationship Specialty Start Date End Date Azul Seals MD [address] [place] [id number] PCP - General Family Medicine 04/12/19 documented as of this encounter
--- OUTSIDE RECORDS SUMMARY | 2025-03-28 19:28 | XMS_ITS | Encounter Summary ---
Author Organization [employer] Address [address] [place] [address] Care Team Providers Care Automation Operator Name Role Phone Azul Seals MD Primary Care Provide r Encounter Details Date Type Department Care Team (Latest Contact Info) Description 04/11/2021 Abstract C CONVERSIONS Dental, Provider, DDS Social History Tobacco [...] on filedocumented in this encounter Care Teams Automation Operator Relationship Specialty Start Date End Date Azul Seals MD [address] [place] [id number] PCP - General Family Medicine 04/12/19 documented as of this encounter
--- OUTSIDE RECORDS SUMMARY | 2025-03-28 19:28 | XMS_ITS | Clinical Summary ---
Author Organization [employer] Address [address] [place] [address] Care Team Providers Care Crepe Maker Name Role Phone Azul Seals MD Primary Care Provide r Allergies Active Allergy Reactions Criticality Noted Date Comments Shrimp Extract Shortness of breath High 02/16/2020 Other reaction(s): Edema Medications cholecalciferol (Vitamin D-3) 50 MCG (1999 UT) tablet TAKE 1 TABLET BY MOUTH EVERY DAY 90 tablet 04/07/20 23 Active cholecalciferol (Vitamin D-3) 50 MCG (1999 UT) tablet Take by mouth. 09/16/19 22 Active amLODIPine (Norvasc) 5 MG tabletIndications: Essential hypertension Take 1 tablet (5 mg) by mouth in the morning. 30 tablet 11 07/13/19 24 Active clonazePAM (KlonoPIN) 2 MG tablet Take 2 mg by mouth 2 times daily. 10/29/19 24 Active donepezil (Aricept) 5 MG tablet Take 5 mg by mouth Once per day. 10/29/19 24 Active Dupixent 300 MG/2ML solution prefilled syringe injection 03/20/20 24 Active memantine (Namenda) 10 MG tablet Take 10 mg by mouth 2 times daily. 10/29/19 24 Active OXcarbazepine (Trileptal) 600 MG tablet Take 1,200 mg by mouth 2 times daily. 10/29/19 24 Active risperiDONE (RisperDAL) 4 MG tablet Take 4 mg by mouth 2 times daily. 11/01/19 24 Active gabapentin (Neurontin) 600 MG tabletIndications: Chronic pain of right ankle TAKE 1 TABLET BY MOUTH THREE TIMES DAILY 90 tablet 2 08/17/19 25 Active acetaminophen (Tylenol 8 Hour) 650 MG ER tabletIndications: Acute bilateral low back pain without sciatica,Post-trau matic osteoarthritis of left ankle TAKE 2 TABLETS BY MOUTH EVERY 8 HOURS NEEDED FOR MILD PAIN. DO NOT BREAK, CRUSH, DISSOLVE OR CHEW 40 tablet 2 03/28/20 25 Active acetaminophen (Tylenol 8 Hour) 650 MG ER tabletIndications: Acute bilateral low back pain without sciatica,Post-trau matic osteoarthritis of left ankle TAKE 2 TABLETS BY MOUTH EVERY 8 HOURS NEEDED FOR MILD PAIN DO NOT BREAK, CRUSH, DISSOLVE OR CHEW 40 tablet 2 07/25/19 25 025 Discontinued Active Problems Problem Noted Date Diagnosed Date Acute bilateral low back pain without sciatica 1 Assessment & Plan (05/03/2024 1:38 PM EDT): XRAY ordered, patient will be contacted with results Acetaminophen prn Periodontal disease 03/29/2024 Dental calculus 03/29/2024 Tooth sensitivity 03/29/2024 Trigger finger of left hand 04/22/2023 Chronic pain of right ankle 01/25/2023 Assessment & Plan (01/25/2023 3:48 PM EDT): As above Follow up with specialist Epigastric pain 12/14/2022 Assessment & Plan (01/25/2023 3:48 PM EDT): I advise patient to avoid NSAIDs, spicy and acid food, I advise to eat at the same time every day, I advise to elevate the head of the bed and take medications as prescribe continue with acetaminophen and gabapentin for pain Assessment & Plan (12/16/2022 9:35 AM EDT): I advise patient to avoid NSAIDs, spicy and acid food, I advise to eat at the same time every day, I advise to elevate the head of the bed and take medications as prescribe Patient is already on PPI RTC 6 weeks Schizophrenia 11/10/2022 Assessment & Plan (05/03/2024 1:38 PM EDT): Continue to follow with therapist and psychiatrist Assessment & Plan (09/01/2023 4:37 PM EST): Patient seems to be more calm and stable He feels better if I follow up with him in 2 months Continue to follow with psychiatrist and therapist Assessment & Plan (08/04/2023 12:48 PM EST): Patient feels safer if I follow him up in few weeks and tells me how he did with specialist, meanwhile he will c/w same medications and f/u with therapist, I agree with plan Assessment & Plan (07/13/2023 1:45 PM EST): Patient will not miss his appointment with psychiatrist at [facility] tomorrow I will bring hm back in 3 weeks to see how he is doing Assessment & Plan (12/16/2022 9:34 AM EDT): Continue to follow with psychiatrist and therapist Post-traumatic osteoarthritis of left ankle 08/2022 Mood disorder 11/10/2022 Moderate persistent asthma 11/10/2022 Assessment & Plan (12/16/2022 9:34 AM EDT): Continue to follow with specialist Essential hypertension 11/10/2022 Assessment & Plan (05/03/2024 1:37 PM EDT): Stable c/w same medication regimen and interventions Assessment & Plan (09/01/2023 4:37 PM EST): C/w current medication and interventions Assessment & Plan (08/04/2023 12:47 PM EST): C/w same medication regimen and low Na diet RTC 4 weeks Assessment & Plan (07/13/2023 1:44 PM EST): Likely elevated due to emotional state C/w low Na diet and amlodipine 5mg daily RTC 3 weeks in person Assessment & Plan (04/22/2023 1:33 PM EDT): - Aerobic exercise to reduce BP. Initial goal of 30 min walk 3-5x/week. Increase as tolerated. - low-sodium diet (goal: <2g/day) and heart healthy diet such as DASH to reduce BP and prevent ASCVD. - Home BP monitoring 1-2 x day with goal of <140/90. - Seek immediate medical attention for chest pain, palpitations, SOB, syncope, or sudden changes in mental status. - Do not change or discontinue current prescriptions without first consulting health care provider Assessment & Plan (12/16/2022 9:34 AM EDT): - Aerobic exercise to reduce BP. Initial goal of 30 min walk 3-5x/week. Increase as tolerated. - low-sodium diet (goal: <2g/day) and heart healthy diet such as DASH to reduce BP and prevent ASCVD. - Home BP monitoring 1-2 x day with goal of <140/90. - Seek immediate medical attention for chest pain, palpitations, SOB, syncope, or sudden changes in mental status. - Do not change or discontinue current prescriptions without first consulting health care provider Elevated blood pressure reading 11/10/2022 Allergic reaction 11/10/2022 Resolved Problems Problem Noted Date Diagnosed Date Resolved Date Mild intermittent asthma 11/10/202201/2023 Encounters Date Type Department Care Team Description 03/27/2025 Refill [facility] MEDICINE [address] [place] [address] Azul Seals MD Acute bilateral low back pain without sciatica; Post-traumatic osteoarthritis of left ankle 03/20/2025 Telephone [facility] MED & PEDS [address] [place], [place] [phone] Azul Seals MD NOV RECALL from Last 3 Months Immunizations Immunization Administration Dates Next Due Influenza injectable quadriv alent preservative free 04/22/2023,05/28/2022,04/16/2021,2019,04/12/2019 Influenza, seasonal, injecta ble, preservative free 05/03/2024 Pfizer Covid-19 Vaccine 12+ 09/28/2023 Pneumococcal Conjugate PCV 20 05/03/2024 Tdap 09/01/2023 Social History Tobacco Use Types Packs/Day Years Used Date Smoking Tobacco: Never Passive Smoke Exposure: Never Smokeless Tobacco: Never Tobacco Cessation:Counseling Given: Not Answered Alcohol Use Standard Drinks/Week Comments Never 0 (1 standard drink = 0.6 oz pur e alcohol) Depression Answer Date Recorded Patient Health Questionnaire-9 Score 0 08/04/2023 Patient Health Questionnaire-9 Score 0 08/04/2023 Last PHQ-9: Questionnaire Data Not on file 0 08/04/2023 Housing Stability Answer Date Recorded What is your housing situation today? I have chun [place] 05/14/[address] you li [...] Orientation Straight 05/11/2022 10 :35 AM EDT Last Filed Vital Signs Vital Sign Reading Time Taken Comments Blood Pressure 128/69 05/03/2024 10:47 AM EDT Pulse 88 05/03/2024 10:47 AM EDT Temperature 36.9 C (98.4 F) 05/03/2024 10:47 AM EDT Respiratory Rate 16 05/03/2024 10:47 AM EDT Oxygen Saturation 99% 05/03/2024 10:47 AM EDT Inhaled Oxygen Concentration - - Weight 74.1 kg (163 lb 6.4 oz) 05/03/2024 10:47 AM EDT Height 160 cm (5' 3 ) 05/03/2024 10:47 AM EDT Body Mass Index 28.95 05/03/2024 10:47 AM EDT Plan of Treatment Health Maintenance Due Date Last Done Comments HIV Screening 1980 Disability Screening 1980 Alcohol/Substance Use Screening 1992 Family Planning (PISQ) 1995 HPV Vaccines (1 - Male 3-dose series) 1995 Hepatitis C Screening 1998 Hepatitis B Vaccines (1 of 3 - 19+ 3-dose series) 1999 SDOH Screening 12/15/2023 12/14/2022 Depression Screening 08/04/2024 08/04/2023, 08/04/19 Dental Oral Exam 09/27/2024 03/29/2024, 07/2020, 05/08/2019 Dental Prophylaxis 09/27/2024 03/29/2024, 0 10/17/2021, 04/11/2021, Additional history exists COVID-19 Vaccine ( season) 2025 09/28/2023, 05/28/2022, 10/16/2020 Influenza Vaccine (#1) 2025 , 04/22/2023, 05/28/2022, Additional history exists Dental X-Ray: Bitewings 03/30/2025 03/29/20 24, 04/11/2021, 05/08/2019 Tobacco Screening 05/03/2025 05/03/2024 Lipid Panel 09/12/2026 09/12/2021 Dental X-Ray: Full Mouth 03/30/2027 024, 03/28/2021, 05/08/2019 Zoster Vaccines (1 of 2) 2030 DTaP/Tdap/Td Vaccines (2 - Td or Tdap) 09/01/2033 09/01/2023 RSV Patients and Patients Aged 60 years or older (1 - 1-dose 75+ series) 2055 Pneumococcal Vaccine: Pediatrics (0 to 5 Years) and At-Risk Patients (6 to 49) Years Completed 05/03/2024 HIB Vaccines Aged Out No longer eligi ble based on patient's age to complete this topic Hepatitis A Vaccines Aged Out No long er eligible based on patient's age to complete this topic IPV Vaccines Aged Out No longer eligi ble based on patient's age to complete this topic Meningococcal B Vaccine Aged Out No l onger eligible based on patient's age to complete this topic Meningococcal Vaccine Aged Out No sandra oren eligible based on patient's age to complete this topic RSV under 20 months Aged Out No longe r eligible based on patient's age to complete this topic Rotavirus Vaccines Aged Out No longer eligible based on patient's age to complete this topic Procedures Procedure Name Priority Date/Time Associated Diagnosis Comments PROPHYLAXIS - ADULT Routine 03/29/2024 1 1:00 AM EDT Periodontal disease Dental calculus INTRAORAL - COMPLETE SERIES OF RADIOGRAPHIC IMAGES Routine 03/29/2024 11:00 AM EDT Periodontal disease Dental calculus PERIODIC ORAL EVALUATION - ESTABLISHED PATIENT Routine 03/29/2024 11:00 AM EDT LIPID PANEL, STANDARD Routine 09/12/2021 8:10 AM EST from Last 3 Months or Most Recently Relevant to Health Maintenance Results * (ABNORMAL) LIPID PANEL, STANDARD (09/12/2021 8:10 AM EST) Chol/HDLC Ratio 8.0(H) <5.0 (calc) [facility] Cholesterol, Total 200(H) <200 mg/dL [facility] HDL Cholesterol 25(L) > OR = 40 mg/dL [facility] LDL Cholesterol SEE COMMENT mg/dL (calc) [facility] Comment: LDL cholesterol not calculated. Triglyceride levels greater than 400 mg/dL invalidate calculated LDL results. Reference range: <100 Desirable range <100 mg/dL for primary prevention; <70 mg/dL for patients with CHD or diabetic patients with > or = 2 CHD risk factors. LDL-C is now calculated using the Inocente calculation, which is a validated novel method providing better accuracy than the Friedewald equation in the estimation of LDL-C. Jon MARTINEZ et al. HENRY. 2013;310(19): 3227-8850 (http://education.Valutao.orderbolt/faq/LZQ855) Non-HDL Cholesterol 175(H) <130 mg/dL (calc) [facility] Comment: For patients with diabetes plus 1 major ASCVD risk factor, treating to a non-HDL-C goal of <100 mg/dL (LDL-C of <70 mg/dL) is considered a therapeutic option. Triglycerides 600(H) <150 mg/dL [facility] Comment: If a non-fasting specimen was collected, consider repeat triglyceride testing on a fasting specimen if clinically indicated. Alvarez et al. J. of Clin. Lipidol. 2015;9:129-169. There is increased risk of pancreatitis when the triglyceride concentration is very high (> or = 500 mg/dL, especially if > or = 1000 mg/dL). Alvarez et al. J. of Clin. Lipidol. 2015;9:129-169. 09/12/2021 8:10 AM EST Azul Brown MD LAB BLOOD ORDERABLES Final Result [facility] [address] from Last 3 Months or Most Recently Relevant to Health Maintenance Insurance [facility] STAND ADULT Care Teams Crepe Maker Relationship Specialty Start Date End Date Azul Seals MD [address] [place] [address] PCP - General Family Medicine 04/12/19
--- OUTSIDE RECORDS SUMMARY | 2025-03-28 19:28 | XMS_ITS | Encounter Summary ---
Author Organization [employer] Address [facility] [place] [address] Care Team Providers Care Assembly Adjuster Name Role Phone Azul Seals MD Primary Care Provide r Encounter Details Date Type Department Care Team (Latest Contact Info) Description 05/08/[address] [facility] CONVERSIONS Dental, Provider, DDS Social History [...] on filedocumented in this encounter Care Teams Assembly Adjuster Relationship Specialty Start Date End Date Azul Seals MD [address] [place] [id number] PCP - General Family Medicine 04/12/19 documented as of this encounter
== END 2025-03-28 18:54 | disposition home or self-care (01) ==
PROVIDERS: Emergency Provider Student in an Organized Health Care Education/Training Program
DX: S63.602A Unspecified sprain of left thumb, initial encounter (principal); X58.XXXA Exposure to other specified factors, initial encounter; Y93.9 Activity, unspecified; Y92.9 Unspecified place or not applicable; Y99.8 Other external cause status; Z79.899 Other long term (current) drug therapy
CPT/HCPCS: 73130; 96372; 99284; J1885

== ENCOUNTER → 2025-03-28 17:17 | Outpatient (BNV) | payer MEDICARE, MEDICAID, SELFPAY | PROVIDERS: Emergency Provider Student in an Organized Health Care Education/Training Program; Visit Provider Radiology Diagnostic Radiology | DX: S69.92XA Unspecified injury of left wrist, hand and finger(s), initial encounter (principal) | CPT/HCPCS: 73130 ==